=== PATIENT | male | born 1990 | race Two or more races ===

== ENCOUNTER 2019-08-10 18:22 | Inpatient (IN) | payer OTHER ==
[~2019-08-10] VITALS: Ht 170.2 cm; Wt 72.7 kg
[2019-08-10] MEDS ORDERED: HYDROMORPHONE 1 MG/1 ML DISP.SYRIN IV ONE ×2 (18:45→19:45)
[2019-08-10] MEDS ORDERED: ONDANSETRON 4 MG/2 ML VIAL IV ONE ×2 (18:45→19:45)
[2019-08-10] MEDS ORDERED: IV NORMAL SALINE 1000 ML BAG IV ONE (18:45)
[2019-08-10] MEDS ORDERED: ONDANSETRON 4 MG/2 ML VIAL ONE ×2 (18:48→19:44)
[2019-08-10] MEDS ORDERED: HYDROMORPHONE 2 MG/1 ML DISP.SYRIN ONE (18:48)
[2019-08-10 18:59] LABS: BASOPHILS # (AUTO) 0.1 K/uL (0.0-8.0); BASOPHILS % (AUTO) 0.4 % (0.0-2.0); EOSINOPHILS % (AUTO) 0.2 % (0.0-7.0); HEMATOCRIT 46.4 % (36.7-47.1); HEMOGLOBIN 15.5 g/dL (12.5-16.3); LYMPHOCYTES # (AUTO) 1.8 K/uL (20.0-40.0); LYMPHOCYTES % (AUTO) 9.4 % (20.5-51.5); MEAN CORPUSCULAR HEMOGLOBIN 29.4 uug (23.8-33.4); MEAN CORPUSCULAR HGB CONC 34 g/dL (32.5-36.3); MEAN CORPUSCULAR VOLUME 87.8 fL (73.0-96.2); MONOCYTES # (AUTO) 0.9 K/uL (2.0-10.0); PLATELET COUNT (AUTO) 352 K/uL (152-348); RED BLOOD CELL COUNT(AUTO) 5.29 MIL/uL (4.06-5.63); WHITE BLOOD COUNT (AUTO) 18.8 K/uL (3.6-10.2)
[2019-08-10 19:20] LABS: BILIRUBIN,DIRECT 0.1 mg/dL (0.0-0.2); BILIRUBIN,TOTAL 0.5 mg/dL (0.2-1.0); CREATININE 1.2 mg/dL (0.6-1.3); POTASSIUM 3.3 mmol/L (3.5-5.1); TOTAL PROTEIN, SERUM 7.6 g/dL (6.4-8.2)
--- NOTE | 2019-08-10 19:20 | NUR ---
Patient back in room from CT
[2019-08-10] MEDS ORDERED: HYDROMORPHONE 1 MG/1 ML DISP.SYRIN ONE (19:44)
[2019-08-10] MEDS ORDERED: METRONIDAZOLE 500 MG/NS 100 ML PIGGYBACK IV ONE (20:00)
[2019-08-10] MEDS ORDERED: CEFTRIAXONE 1 G in IV DEXTROSE 5% 50 ML IV ONE (20:00)
[2019-08-10] MEDS ORDERED: CEFTRIAXONE /D5W 50ML IVPB **ER PYXIS IV ONE (20:03)
[2019-08-10] MEDS ORDERED: METRONIDAZOLE 500 MG/NS 100ML 100 ML IV ONE (20:04)
--- NOTE | 2019-08-10 20:12 | NUR ---
Called [facility] for panel placement
[2019-08-10] MEDS ORDERED: ACETAMINOPHEN 650 MG SUPP.RECT RC PRN (20:45)
[2019-08-10] MEDS ORDERED: ONDANSETRON 4 MG/2 ML VIAL IV PRN (20:45)
[2019-08-10] MEDS ORDERED: MORPHINE SULFATE 2 MG/1 ML DISP.SYRIN IV PRN (20:45)
--- NOTE | 2019-08-10 21:07 | NUR ---
Kadi to finish infusing in [place]. Sheryl BARNETT aware
--- NOTE | 2019-08-10 21:07 | NUR ---
Pt. admitted to [facility] , under care of Dr. Zavaleta Belongs List completed
[2019-08-10 21:15] VITALS: BP 112/57
--- NOTE | 2019-08-10 21:15 | NUR ---
RECEIVED PATIENT VIA GURNEY FROM ER. PATIENT IS A/O X4. HEPLOCK INTACT AND PATENT, NOTED TO RIGHT FA #20 GAUGE. C/O PAIN IN ABDOMEN. VSS. ORIENTED PATIENT TO ROOM AND CALL LIGHT. CALL LIGHT IN REACH. ALL NEEDS ATTENDED, WILL CONTINUE TO MONITOR AND ASSESS.
[2019-08-10] MEDS: HYDROMORPHONE 1 MG/1 ML DISP.SYRIN IV PRN (21:47)
[2019-08-10] MEDS ORDERED: PIPERACILLIN/TAZOBACTAM/D5W 100 ML IV ONE (21:48)
[2019-08-10] MEDS: POTASSIUM CHLORIDE 20 MEQ in IV D5 1/2 NS 1000 ML 1,000 ML IV PRN (21:54)
[2019-08-10] MEDS: PIPERACILLIN SODIUM/TAZOBACTAM 3.375 G in IV DEXTROSE 5% 50 ML IV SCH (22:36)
[2019-08-11] MEDS ORDERED: PIPERACILLIN SODIUM/TAZOBACTAM 3.375 G in IV DEXTROSE 5% 50 ML IV SCH ×2
[2019-08-11] MEDS: HYDROMORPHONE 1 MG/1 ML DISP.SYRIN IV PRN ×6 (02:09→22:16)
[2019-08-11] MEDS: PIPERACILLIN SODIUM/TAZOBACTAM 3.375 G in IV DEXTROSE 5% 50 ML IV SCH ×3 (05:27→21:09)
[2019-08-11 05:34] VITALS: BP 129/54
--- NOTE | 2019-08-11 06:00 | NUR ---
PATIENT MEDICATED FOR PAIN PER RN. IVF INFUSING WELL. VSS. CALL LIGHT N REACH. ALL NEEDS ATTENDED.
[2019-08-11 06:32] LABS: BASOPHILS # (AUTO) 0.1 K/uL (0.0-8.0); BASOPHILS % (AUTO) 0.8 % (0.0-2.0); EOSINOPHILS # (AUTO) 0.1 K/uL (0.0-0.7); EOSINOPHILS % (AUTO) 1.1 % (0.0-7.0); HEMATOCRIT 42.6 % (36.7-47.1); HEMOGLOBIN 14.2 g/dL (12.5-16.3); LYMPHOCYTES # (AUTO) 3.5 K/uL (20.0-40.0); LYMPHOCYTES % (AUTO) 37.2 % (20.5-51.5); MEAN CORPUSCULAR HEMOGLOBIN 29.3 uug (23.8-33.4); MEAN CORPUSCULAR HGB CONC 33 g/dL (32.5-36.3); MONOCYTES # (AUTO) 0.7 K/uL (2.0-10.0); MONOCYTES % (AUTO) 7.4 % (0.0-11.0); NEUTROPHILS % (AUTO) 53.5 % (38.5-71.5); PLATELET COUNT (AUTO) 328 K/uL (152-348); RED BLOOD CELL COUNT(AUTO) 4.84 MIL/uL (4.06-5.63); WHITE BLOOD COUNT (AUTO) 9.4 K/uL (3.6-10.2)
[2019-08-11 06:47] LABS: BILIRUBIN,TOTAL 0.8 mg/dL (0.2-1.0); CREATININE 1.1 mg/dL (0.6-1.3); MAGNESIUM 1.8 mg/dL (1.8-2.4); PHOSPHOROUS 4.1 mg/dL (2.5-4.9); POTASSIUM 3.6 mmol/L (3.5-5.1); TOTAL PROTEIN, SERUM 6.3 g/dL (6.4-8.2)
--- NOTE | 2019-08-11 07:20 | NUR ---
RECEIVED PATIENT LAYING IN BED. AWAKE AND ALERT. NO ACUTE DISTRESS NOTED. PATIENT DENIES PAIN AND DISCOMFORT. BED IN LOWEST POSITION, SIDE RAILS UP X2, CALL LIGHT WITHIN REACH. WILL CONTINUE TO MONITOR.
[2019-08-11] MEDS: POTASSIUM CHLORIDE 20 MEQ in IV D5 1/2 NS 1000 ML 1,000 ML IV PRN ×2 (07:54→17:58)
[2019-08-11] MEDS: PANTOPRAZOLE SODIUM 40 MG VIAL IV SCH (08:46)
[2019-08-11 11:18] VITALS: BP 128/70
[2019-08-11 15:08] VITALS: BP 105/53
--- NOTE | 2019-08-11 18:34 | NUR ---
PATIENT RESTED THROUGHOUT DAY. PATIENT REPORTED PAIN, PAIN MEDICATION ADMINISTERED. PATIENT SEEN BY CURT HERRON, PATIENT NOT A CANDIDATE FOR SURGERY. PATIENT SHOWED NO S/S OF ACUTE DISTRESS. SAFETY MEASURES PROVIDED. WILL ENDORSE TO ONCOMING NURSE.
[2019-08-11 20:03] VITALS: BP 110/48
[2019-08-12] MEDS: POTASSIUM CHLORIDE 20 MEQ in IV D5 1/2 NS 1000 ML 1,000 ML IV PRN ×3 (03:20→22:50)
[2019-08-12] MEDS: PIPERACILLIN SODIUM/TAZOBACTAM 3.375 G in IV DEXTROSE 5% 50 ML IV SCH ×3 (05:26→21:01)
[2019-08-12 05:56] VITALS: BP 128/63
[2019-08-12 06:43] LABS: BASOPHILS % (AUTO) 0.8 % (0.0-2.0); EOSINOPHILS # (AUTO) 0.1 K/uL (0.0-0.7); EOSINOPHILS % (AUTO) 1.9 % (0.0-7.0); HEMATOCRIT 42.4 % (36.7-47.1); HEMOGLOBIN 13.9 g/dL (12.5-16.3); LYMPHOCYTES # (AUTO) 2.9 K/uL (20.0-40.0); LYMPHOCYTES % (AUTO) 43.8 % (20.5-51.5); MEAN CORPUSCULAR HEMOGLOBIN 29.6 uug (23.8-33.4); MEAN CORPUSCULAR HGB CONC 33 g/dL (32.5-36.3); MEAN CORPUSCULAR VOLUME 89.9 fL (73.0-96.2); MONOCYTES # (AUTO) 0.5 K/uL (2.0-10.0); MONOCYTES % (AUTO) 7.5 % (0.0-11.0); PLATELET COUNT (AUTO) 275 K/uL (152-348); RED BLOOD CELL COUNT(AUTO) 4.71 MIL/uL (4.06-5.63); WHITE BLOOD COUNT (AUTO) 6.6 K/uL (3.6-10.2)
--- NOTE | 2019-08-12 06:45 | NUR ---
patient received lying in bed. v/s stable and no signs of acute distress throughout shift. safety and comfort measures provided at all times. c/o of pain and dialudid administered x1. tolerated well. will continue to monitor and endorse accordingly to morning shift.
[2019-08-12 06:49] LABS: MAGNESIUM 2.1 mg/dL (1.8-2.4); PHOSPHOROUS 5.2 mg/dL (2.5-4.9); POTASSIUM 4.1 mmol/L (3.5-5.1)
--- NOTE | 2019-08-12 07:30 | NUR ---
Patient calm and comfortable resting in bed with no signs of distress; patient will continue to be monitored.
[2019-08-12] MEDS: PANTOPRAZOLE SODIUM 40 MG VIAL IV SCH (08:35)
[2019-08-12] MEDS: HYDROCODONE/APAP 5-325MG TABLET PO PRN ×3 (08:35→20:42)
[2019-08-12 12:12] VITALS: BP 104/66
[2019-08-12 15:44] VITALS: BP 105/42
--- NOTE | 2019-08-12 18:40 | NUR ---
Patient has been calm and comfortable through out shift with no signs of distress;patient medication compliant; patient kept comfortable ; patient at bedside. Report coming oncoming nurse.
[2019-08-12 20:18] VITALS: BP 105/57
[2019-08-13] MEDS: PIPERACILLIN SODIUM/TAZOBACTAM 3.375 G in IV DEXTROSE 5% 50 ML IV SCH (05:11)
[2019-08-13] MEDS: HYDROCODONE/APAP 5-325MG TABLET PO PRN (05:50)
[2019-08-13 05:53] VITALS: BP 112/59
--- NOTE | 2019-08-13 06:07 | NUR ---
patient received lying in bed. no signs of acute distress and v/s stable at this time. safety and comfort measures provided at all times. bed in lowest position, side rails up x2, and bed alarm on. c/o of pain, norco administered 2x, tolerated well. will continue to monitor and endorse accordingly.
[2019-08-13 06:13] LABS: BASOPHILS # (AUTO) 0.1 K/uL (0.0-8.0); BASOPHILS % (AUTO) 1.1 % (0.0-2.0); EOSINOPHILS # (AUTO) 0.2 K/uL (0.0-0.7); EOSINOPHILS % (AUTO) 3.2 % (0.0-7.0); HEMATOCRIT 42.9 % (36.7-47.1); HEMOGLOBIN 14.8 g/dL (12.5-16.3); LYMPHOCYTES # (AUTO) 3.2 K/uL (20.0-40.0); LYMPHOCYTES % (AUTO) 49.3 % (20.5-51.5); MEAN CORPUSCULAR HEMOGLOBIN 30.8 uug (23.8-33.4); MEAN CORPUSCULAR HGB CONC 34 g/dL (32.5-36.3); MEAN CORPUSCULAR VOLUME 89.5 fL (73.0-96.2); MONOCYTES # (AUTO) 0.7 K/uL (2.0-10.0); MONOCYTES % (AUTO) 10.7 % (0.0-11.0); NEUTROPHILS # (AUTO) 2.3 K/uL (1.8-8.9); NEUTROPHILS % (AUTO) 35.7 % (38.5-71.5); PLATELET COUNT (AUTO) 284 K/uL (152-348); RED BLOOD CELL COUNT(AUTO) 4.79 MIL/uL (4.06-5.63); WHITE BLOOD COUNT (AUTO) 6.6 K/uL (3.6-10.2)
[2019-08-13 06:40] LABS: CREATININE 1.1 mg/dL (0.6-1.3); PHOSPHOROUS 4.2 mg/dL (2.5-4.9); POTASSIUM 3.9 mmol/L (3.5-5.1)
[2019-08-13] MEDS ORDERED: PANTOPRAZOLE SODIUM 40 MG TABLET.DR PO SCH (07:00)
[2019-08-13] MEDS ORDERED: CIPR-262 PO (07:11)
[2019-08-13] MEDS ORDERED: METR500T PO (07:11)
[2019-08-13] MEDS ORDERED: LORAZEPAM 2 MG/1 ML VIAL IV PRN (07:45)
[2019-08-13] MEDS ORDERED: IV NORMAL SALINE 500 ML IV ONE (07:45)
[2019-08-13] MEDS ORDERED: hydrALAZINE HCL 20 MG/1 ML VIAL IV PRN (07:45)
--- NOTE | 2019-08-13 07:47 | NUR ---
Dr. boothe contacted for high BP. orders received. Ativan 0.5 Iv push q8h prn for agitation, 500 cc NS IVF BOLUS at once, hydralazine 10 mg IV q6h OR >160. orders placed and endorsed to morning nurse to administer bolus and prn medication as needed. Addendum: 08/13/19 at 751 by GINA METZGER RN correction: hydralazine 10 mg IV q6h prn for bp >160 Addendum: 08/13/19 at 075 by GINA METZGER RN correction: wrong patient
--- NOTE | 2019-08-13 08:00 | NUR ---
received pt lying in bed alert oriented x4. no signs of acute distress and v/s stable at this time. Pt. denies pain/ discomfort. Pt. denies SOB/ difficulty breathing. safety and comfort measures provided at all times. bed in lowest position, side rails up x2, and bed alarm on. call light within reach. will continue to monitor pt. pt. aware of discharge plans today and to follow up with PCP as well as Gi doctor in 1 week. Will get discharge paperwork together.
[2019-08-13 11:48] VITALS: BP 101/51
--- NOTE | 2019-08-13 12:36 | NUR ---
Pt. discharged back home in stable condition. Picked up by father. Walked down by charge nurse. Pt. has all discharge paper work completed and signed. Prescription written for patient and in folder in addition to electronically sent antibiotics to preferred pharmacy. Pt. vital signs stable. Removed IV along with ID band. pt. understands discharge plans to follow up with PCP and GI in one week.
== END 2019-08-13 12:35 | disposition home or self-care (01) | DRG 254 ==
LOC: ER 18:23 → MEDSURG3 20:56
PROVIDERS: ADMIT Internal Medicine; ATTEND Student in an Organized Health Care Education/Training Program
DX: K35.80 Unspecified acute appendicitis (principal); E83.51 Hypocalcemia; F17.210 Nicotine dependence, cigarettes, uncomplicated; Z87.19 Personal history of other diseases of the digestive system; E87.6 Hypokalemia; F43.10 Post-traumatic stress disorder, unspecified; D47.3 Essential (hemorrhagic) thrombocythemia; K52.9 Noninfective gastroenteritis and colitis, unspecified
CPT/HCPCS: 36415; 83690; 83735; 84100; 85025; 85610; A4663; C9113; G0378; J0696; J1170; J2405; J2543; J3480; J3490; J7030; J7050; J7060